=== PATIENT | male | born 1990 | race Hispanic/Latino ===

== ENCOUNTER 2020-11-27 07:02 | Emergency (ER) | payer OTHER ==
[~2020-11-27] VITALS: Ht 177.8 cm; Wt 65.8 kg
[~2020-11-27 07:02] MED LIST: DEPAKOTE500 MG PO; IBUPROFEN800 MG PO; NAPROXEN500 MG PO; TUMS200 MG PO; TYLENOL325 MG PO; ULTRAM50 MG PO
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
== END 2020-11-27 08:28 | disposition home or self-care (01) ==
LOC: ED 07:02
DX: G40.909 Epilepsy, unspecified, not intractable, without status epilepticus (principal); F17.200 Nicotine dependence, unspecified, uncomplicated; Z79.899 Other long term (current) drug therapy
CPT/HCPCS: 80053; 80164; 81001; 85025; 96374; 99284-25; J2060

== ENCOUNTER 2021-06-06 18:44 | Emergency (ER) | payer OTHER ==
[~2021-06-06] VITALS: Ht 177.8 cm; Wt 65.8 kg
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
== END 2021-06-07 01:07 | disposition home or self-care (01) ==
LOC: ED 18:44
DX: G40.909 Epilepsy, unspecified, not intractable, without status epilepticus (principal); F17.200 Nicotine dependence, unspecified, uncomplicated; Z79.899 Other long term (current) drug therapy
CPT/HCPCS: 70450; 80053; 80164; 85025; 99284-25

== ENCOUNTER 2024-02-03 12:12 | Emergency (ER) | payer OTHER ==
[~2024-02-03] VITALS: Ht 177.8 cm; Wt 86.0 kg
[2024-02-03 13:37] LABS: INFLUENZA B NAA NEGATIVE (NEGATIVE); RESPIRATORY SYNCYTIAL VIR NAA NEGATIVE (NEGATIVE)
[2024-02-03 15:23] VITALS: BP 127/77
== END 2024-02-03 15:24 | disposition home or self-care (01) ==
LOC: ED 12:12
PROVIDERS: Emergency Medicine
DX: J10.1 Influenza due to other identified influenza virus with other respiratory manifestations (principal); F17.200 Nicotine dependence, unspecified, uncomplicated; Z79.899 Other long term (current) drug therapy
CPT/HCPCS: 87502; 99283; U0002

== ENCOUNTER 2024-03-10 11:21 | Emergency (ER) | payer OTHER ==
[~2024-03-10] VITALS: Ht 177.8 cm; Wt 71.5 kg
[2024-03-10] MEDS ORDERED: LEVETIRACETAM500 MG PO (11:26)
[2024-03-10 11:35] LABS: BASOPHILS 0.5 % (0-2); EOSINOPHILS 5.3 % (0-6); HEMATOCRIT 45.3 % (35.0-50.0); HEMOGLOBIN 15.7 g/dL (12.0-18.0); LYMPHOCYTES 43.1 % (24-44); MCH 34.6 (27-36); MCHC 34.7 g/dl (30-36); MCV 99.8 fl (81-99); MONOCYTES 9.4 % (0-12); NEUTROPHILS 41.7 % (39-80); PLATELET COUNT 250 K/uL (140-440); RBC 4.54 M/ul (4.3-5.7); RDW 13.2 (10.5-15.0)
[2024-03-10 11:50] VITALS: BP 122/82
[2024-03-10 11:55] LABS: ALBUMIN 3.9 g/dL (3.4-5.0); ALBUMIN/GLOBULIN RATIO 1.11 (1.1-2.4); ALCOHOL, MEDICAL <3 ng/dL (<3); ALKALINE PHOSPHATASE 62 U/L (46-116); ALT (SGPT) 29 U/L (14-59); ANION GAP 15.4 (7-21); AST (SGOT) 24 U/L (15-37); BILIRUBIN, TOTAL 0.5 ng/dL (0.2-1.0); CARBON DIOXIDE 24 mmol/L (21-32); CHLORIDE 104 mmol/L (98-107); CREATININE, SERUM 1.13 mg/dL (0.70-1.30); GLOMERULAR FILTRATION RATE,EST 87 mL/min (>60); POTASSIUM 4.4 mmol/L (3.5-5.1); PROTEIN, TOTAL 7.4 g/dL (6.4-8.2); UREA NITROGEN 26 mg/dL (7-18)
[2024-03-10] MEDS ORDERED: HYDROCODON-ACE1 EA10 PO (18:14)
== END 2024-03-10 11:50 | disposition home or self-care (01) ==
LOC: ED 11:21
PROVIDERS: Emergency Medicine
DX: G40.909 Epilepsy, unspecified, not intractable, without status epilepticus (principal); F17.200 Nicotine dependence, unspecified, uncomplicated; Z79.899 Other long term (current) drug therapy
CPT/HCPCS: 36415; 80053; 80307; 85025; 99284; G0480

== ENCOUNTER 2024-03-12 09:57 | Emergency (ER) | payer OTHER ==
[~2024-03-12] VITALS: Ht 177.8 cm; Wt 74.5 kg
[~2024-03-12 09:57] MED LIST changes: +HYDROCODON-ACE1 EA10 PO; +LEVETIRACETAM500 MG PO
--- OUTSIDE RECORDS SUMMARY | 2024-03-12 09:58 | XMS ---
PreManage Notification: YOSELIN DUNNE Security Manager Housekeeping Events No recent Security Events currently on file CRITERIA MET - 6 ED Visits in 6 Months - [facility] - 2 Visits in 30 Days CARE PROVIDERS [facility]: [facility] PHONE: [phone] -[facility] Dentist: Manager Part [facility] PHONE: [phone] -[place]- Dentist: Manager Part [facility] PHONE: [phone] [facility]/[place]: [facility] - [facility] PHONE: [phone] [address] [facility] Current PHONE: Unknown Care Guidelines exist for the following facilities: [facility] Marc ( 02/11/2021 ) Demi VISIT COUNT (12 MO.) 4 [facility] TOTAL 6 NOTE: Visits indicate total known visits. ED/UCC VISIT TRACKING (12 MO.) 03/12/2024 09:58 [facility] [place] TYPE: Emergency COMPLAINT: - HEAD PAIN 03/10/2024 14:56 [facility] [place] TYPE: Emergency COMPLAINT: - SEIZURES 03/10/2024 11:21 [facility] [place] TYPE: Emergency COMPLAINT: - SEIZURE 02/03/2024 12:14 [facility] [place] TYPE: Emergency COMPLAINT: - MIGRAINS, VOMITING DIAGNOSES: - Headache, unspecified - Influenza due to other identified influenza virus with other respiratory manifestations - Nicotine dependence, unspecified, uncomplicated - Other intermediate teacher (current) drug therapy 10/30/2023 16:29 [facility] [facility] TYPE: Emergency COMPLAINT: - CHIPPED TOOTH DIAGNOSES: - CHIPPED TOOTH - Dental Problem 10/18/2023 22:23 [facility] [facility] TYPE: Emergency COMPLAINT: - right side tooth pain DIAGNOSES: - Periapical abscess without sinus - Dental Pain - right side tooth pain INPATIENT VISIT TRACKING (12 MO.) No inpatient visits to display in this time frame [email or web address]
[2024-03-12] MEDS ORDERED: METOCLOPRAMIDE HCL 10 MG/2 ML SDV IM ONE (10:30)
[2024-03-12] MEDS ORDERED: ACETAMINOPHEN 325 MG TAB PO ONE (10:30)
[2024-03-12 12:09] VITALS: BP 94/62
== END 2024-03-12 12:09 | disposition home or self-care (01) ==
LOC: ED 09:57
DX: R51.9 Headache, unspecified (principal); G40.909 Epilepsy, unspecified, not intractable, without status epilepticus; F17.200 Nicotine dependence, unspecified, uncomplicated; Z79.899 Other long term (current) drug therapy
CPT/HCPCS: 70450; A9270; J2765

== ENCOUNTER 2024-09-26 17:44 | Emergency (ER) | payer OTHER ==
[~2024-09-26] VITALS: Ht 177.8 cm; Wt 63.0 kg
[2024-09-26] MEDS ORDERED: BUSPIRONE HCL7.5 MG PO (18:00)
[2024-09-26] MEDS ORDERED: SODIUM CHLORIDE 0.9% 1,000 ML IV ONE (18:15)
[2024-09-26] MEDS ORDERED: DIVALPROEX SODIUM 500 MG TABEC PO ONE (18:15)
[2024-09-26] MEDS ORDERED: levETIRAcetam 500 MG TAB PO ONE (18:15)
[2024-09-26] MEDS ORDERED: CEFTRIAXONE SODIUM 1 GM in SODIUM CHLORIDE 0.9% 100 ML IV ONE (18:30)
[2024-09-26] MEDS ORDERED: CEFTRIAXONE SODIUM 1 GM VIAL IV ONE (18:40)
[2024-09-26 18:42] LABS: HEMATOCRIT 47.5 % (35.0-50.0); HEMOGLOBIN 16.4 g/dL (12.0-18.0); MCH 34.4 (27-36); MCHC 34.4 g/dl (30-36); PLATELET COUNT 287 K/uL (140-440); RBC 4.75 M/ul (4.3-5.7); RDW 12.8 (10.5-15.0)
[2024-09-26 18:57] LABS: ALBUMIN 3.7 g/dL (3.4-5.0); ALBUMIN/GLOBULIN RATIO 0.95 (1.1-2.4); ANION GAP 9.3 (7-21); BILIRUBIN, TOTAL 2.3 mg/dL (0.2-1.0); BUN/CREATININE RATIO 14.96 (6.0-28.6); CALCIUM 9.2 mg/dL (8.5-10.1); CREATININE, SERUM 1.47 mg/dL (0.70-1.30); POTASSIUM 3.3 mmol/L (3.5-5.1); PROTEIN, TOTAL 7.6 g/dL (6.4-8.2)
[2024-09-26 18:58] LABS: BANDS, MANUAL DIFF 2; BASOPHILS, MANUAL DIFF 1; LYMPHOCYTES, MANUAL DIFF 42; MONOCYTES, MANUAL DIFF 9; NEUTROPHILS, MANUAL DIFF 46
[2024-09-26 19:01] LABS: LACTIC ACID, BLOOD 1.6 mmol/L (0.4-2.0)
[2024-09-26] MEDS ORDERED: POTASSIUM CHLORIDE 20 MEQ/15 ML CUP PO ONE (20:00)
[2024-09-26] MEDS ORDERED: BACTRIM DS TAB1 EACH PO (20:03)
[2024-09-26 20:20] VITALS: BP 109/55
== END 2024-09-26 20:20 | disposition home or self-care (01) ==
LOC: ED 17:44
PROVIDERS: Emergency Medicine
DX: L03.113 Cellulitis of right upper limb (principal); N17.9 Acute kidney failure, unspecified; E87.6 Hypokalemia; F15.10 Other stimulant abuse, uncomplicated; G40.909 Epilepsy, unspecified, not intractable, without status epilepticus; F17.200 Nicotine dependence, unspecified, uncomplicated; Z91.148 Patient's other noncompliance with medication regimen for other reason; Z79.899 Other long term (current) drug therapy
CPT/HCPCS: 36415; 73090; 80053; 83605; 85025; 87040; 96365; 99283-25; A9270; J7030

== ENCOUNTER 2025-05-30 11:57 | Emergency (ER) | payer OTHER ==
[~2025-05-30] VITALS: Ht 177.8 cm; Wt 73.9 kg
[~2025-05-30 11:57] MED LIST changes: +BACTRIM DS TAB1 EACH PO; +BUSPIRONE HCL7.5 MG PO
[2025-05-30] MEDS ORDERED: KEPPRA500 MG PO ×2 (12:22→13:02)
[2025-05-30] MEDS ORDERED: DEPAKOTE500 MG PO (13:02)
[2025-05-30 13:12] VITALS: BP 119/73
== END 2025-05-30 13:12 | disposition home or self-care (01) ==
LOC: ED 11:57
DX: S93.401A Sprain of unspecified ligament of right ankle, initial encounter (principal); X58.XXXA Exposure to other specified factors, initial encounter; F17.200 Nicotine dependence, unspecified, uncomplicated
CPT/HCPCS: 73610; 99283